=== PATIENT | female | born 1970 | race Two or more races ===

== ENCOUNTER 2024-02-20 02:13 | Emergency (ER) | payer MEDICAID, OTHER ==
[~2024-02-20] VITALS: Ht 162.6 cm; Wt 53.1 kg
[2024-02-20] MEDS ORDERED: MECLIZINE HCL 25 MG TABLET ONE (02:52)
[2024-02-20] MEDS ORDERED: ONDANSETRON 4 MG TAB.RAPDIS ONE (02:53)
[2024-02-20] MEDS: MECLIZINE HCL 12.5 MG TABLET PO ONE (02:56)
[2024-02-20] MEDS: ONDANSETRON 4 MG TAB.RAPDIS PO ONE (02:56)
[2024-02-20 08:41] VITALS: BP 144/82; TEMP 98; O2SAT 99
== END 2024-02-20 08:42 | disposition home or self-care (01) ==
LOC: ER 02:15
DX: R42 Dizziness and giddiness (principal); Z60.2 Problems related to living alone
CPT/HCPCS: 99284; 70450; J8597; Q0162